=== PATIENT | male | born 1950 | race Caucasian/White ===

== ENCOUNTER 2017-05-01 23:25 | Inpatient (IN) | payer OTHER ==
[~2017-05-01] VITALS: Ht 175.3 cm; Wt 83.9 kg
[~2017-05-01 23:25] MED LIST: ASPIRIN81 M2 PO; CARVEDILOL6.25 MG PO; CENTRUM SILVER1 EAC1 PO; COMBIVENT RESPIM4 GM IH; CRANBERRY TABL1 EACH PO; CYANOCOBALAM1000 MCG PO; DICYCLOMINE HCL10 MG PO; EFFEXOR XR150 MG PO; FOLIC ACID0.4 MG PO; GABAPENTIN400 MG PO; KEFLEX500 MG PO; LACTULOSE10 GM/151 PO; LISINOPRIL2.5 MG PO; LORATADINE10 M2 PO; LYRICA50 MG PO; MILK THISTLE500 MG PO; MOTRIN800 MG PO; NORCO 5/3251 TABLET PO; NORVASC5 MG PO; NYSTATIN15 GM TP; PROBIOTIC1 EAC2 PO; REGLAN10 MG PO; RESTORIL30 MG PO; SEROQUEL100 MG PO; SEROQUEL12.5 MG PO; SYNTHROID150 MCG PO; TERBINAFINE15 GM TP; VENLAFAXINE HC150 MG PO; VITAMIN B-6100 MG PO; VITAMIN B12-FO1 EACH PO; VITAMIN D31000 UNI2 PO; VITAMIN D32000 UNIT PO; ZANTAC150 MG PO; ZOCOR20 MG PO
[2017-05-01 23:47] LABS: AMYLASE 121 IU/L (1-118); CHLORIDE 105 mEq/L (99-109); POTASSIUM 4.4 mEq/L (3.7-5.4); SODIUM 139 mEq/L (136-147)
[2017-05-01 23:49] LABS: GLUCOSE 81 mg/dL (70-99)
[2017-05-01 23:50] LABS: ANION GAP 14 MEQ/L (2-14)
[2017-05-01 23:52] LABS: SERUM ETHYL ALCOHOL < 10 mg/dL
[2017-05-01 23:53] LABS: GFR ESTIMATE (CALCULATED) > 59 mL/min/
[2017-05-01 23:54] LABS: UREA NITROGEN (BUN) 18 mg/dL (9-23)
[2017-05-01 23:56] LABS: LIPASE 76 U/L (1.0-51.0)
[2017-05-02 01:36] LABS: POINT-OF-CARE METER ID UU13113675
[2017-05-02 01:45] LABS: HEMATOCRIT 43.3 % (38.0-50.0); MCH 34.5 PG (29.0-34.0); MCHC 34.2 G/DL (30.0-36.0); MCV 100.9 FL (86-99); MEAN PLAT.VOLUME 10.9 uM^3 (9.0-12.4); MONOCYTE (%) 6.7 % (3-12); NEUTROPHIL (%) 80.2 % (45-76); PLATELET COUNT 138 K/uL (156-360); RBC DIS.WIDTH-CV 12.9 % (11.8-14.6); RBC DIS.WIDTH-SD 48.4 % (39-53); RED BLOOD COUNT 4.29 M/uL (4.00-5.50); WHITE BLOOD COUNT 9.6 K/uL (4.1-10.2)
[2017-05-02 01:46] LABS: BASOPHIL COUNT 0.1 K/uL (0-0.1); EOSINOPHIL (%) 0.7 % (0-5); EOSINOPHIL COUNT 0.1 K/uL (0-0.3); IMMATURE GRANULOCYTE (%) 0.4 % (0.0-0.7); INSTRUMENT ABS NEUTROPHIL CT 7.7 K/uL; LYMPHOCYTE COUNT 1.1 K/uL (1.0-2.8); MONOCYTE COUNT 0.6 K/uL (0-0.8); NEUTROPHIL COUNT 7.7 K/uL (1.8-6.4)
[2017-05-02 03:35] VITALS: BP 120/57
[2017-05-02 08:21] VITALS: BP 143/67
[2017-05-02] MEDS ORDERED: NYSTATIN15 GM TP (09:31)
[2017-05-02] MEDS ORDERED: KENALOG,ARISTOC80 GM TP (09:31)
[2017-05-02 12:03] LABS: HEMATOCRIT 39.6 % (38.0-50.0); MCV 101.8 FL (86-99)
[2017-05-02 12:11] VITALS: BP 163/74
[2017-05-02 15:52] VITALS: BP 174/81
[2017-05-02] MEDS ORDERED: OXYCODONE HCL5 MG PO (17:56)
[2017-05-02 20:12] VITALS: BP 155/73
[2017-05-03 00:13] VITALS: BP 147/71
[2017-05-03 04:19] VITALS: BP 135/66
[2017-05-03 06:30] LABS: HEMATOCRIT 36.9 % (38.0-50.0); MCH 35.4 PG (29.0-34.0); MCV 101.4 FL (86-99); MEAN PLAT.VOLUME 11.3 uM^3 (9.0-12.4); PLATELET COUNT 113 K/uL (156-360); RBC DIS.WIDTH-CV 13.1 % (11.8-14.6); RBC DIS.WIDTH-SD 49.3 % (39-53); RED BLOOD COUNT 3.64 M/uL (4.00-5.50); WHITE BLOOD COUNT 6.7 K/uL (4.1-10.2)
[2017-05-03 06:54] LABS: ALKALINE PHOSPHATASE 61 IU/L (3-129); ANION GAP 6 MEQ/L (2-14); CHLORIDE 101 MEQ/L (99-109); POTASSIUM 4.1 MEQ/L (3.7-5.4); SAMPLE HEMOLYSIS CHECK 0; SAMPLE ICTERIC CHECK 0; SAMPLE LIPEMIA CHECK 0; SODIUM 136 MEQ/L (136-147); TOTAL BILIRUBIN 1.3 MG/DL (0.0-1.0); UREA NITROGEN (BUN) 7 mg/dL (9-23)
[2017-05-03 06:56] LABS: GFR ESTIMATE (CALCULATED) > 59 mL/min/; GLUCOSE 108 mg/dL (70-99)
[2017-05-03 07:51] VITALS: BP 135/61
[2017-05-03 10:55] VITALS: BP 170/78
[2017-05-03 15:55] VITALS: BP 173/66
[2017-05-03 19:36] VITALS: BP 163/78
[2017-05-04 00:05] VITALS: BP 174/82
[2017-05-04 06:47] LABS: EOSINOPHIL (%) 1.7 % (0-5); EOSINOPHIL COUNT 0.1 K/uL (0-0.3); HEMATOCRIT 39.5 % (38.0-50.0); IMMATURE GRANULOCYTE (%) 0.3 % (0.0-0.7); INSTRUMENT ABS NEUTROPHIL CT 4.7 K/uL; MCH 35.3 PG (29.0-34.0); MCHC 34.9 G/DL (30.0-36.0); MEAN PLAT.VOLUME 11.3 uM^3 (9.0-12.4); MONOCYTE (%) 9.9 % (3-12); MONOCYTE COUNT 0.6 K/uL (0-0.8); NEUTROPHIL (%) 72.5 % (45-76); NEUTROPHIL COUNT 4.7 K/uL (1.8-6.4); PLATELET COUNT 105 K/uL (156-360); RBC DIS.WIDTH-CV 13.1 % (11.8-14.6); RBC DIS.WIDTH-SD 48.9 % (39-53); RED BLOOD COUNT 3.91 M/uL (4.00-5.50); WHITE BLOOD COUNT 6.5 K/uL (4.1-10.2)
[2017-05-04 07:09] LABS: ANION GAP 8 MEQ/L (2-14); CHLORIDE 100 MEQ/L (99-109); GFR ESTIMATE (CALCULATED) > 59 mL/min/; GLUCOSE 102 mg/dL (70-99); POTASSIUM 3.8 MEQ/L (3.7-5.4); SAMPLE HEMOLYSIS CHECK 0; SAMPLE ICTERIC CHECK 0; SAMPLE LIPEMIA CHECK 0; SODIUM 137 MEQ/L (136-147); UREA NITROGEN (BUN) 7 mg/dL (9-23)
[2017-05-04 08:25] VITALS: BP 177/94
[2017-05-04 15:25] VITALS: BP 185/84
[2017-05-04 17:15] VITALS: BP 170/80
== END 2017-05-04 19:43 | disposition home or self-care (01) | DRG 330 ==
LOC: TRA 23:25 → SDC 23:53 → 2SOUTH 05-02 01:10 → ENRESERV 05-02 01:17 → 3EAST 05-02 03:11
PROVIDERS: Emergency Medicine; Physician Assistant; Surgery
PROC: 0DQL0ZZ Repair Transverse Colon, Open Approach (ICD-10-PCS; principal; 2017-05-02)
PROC: 0W9G0ZZ Drainage of Peritoneal Cavity, Open Approach (ICD-10-PCS; principal; 2017-05-02)
PROC: 0HQ8XZZ Repair Buttock Skin, External Approach (ICD-10-PCS; principal; 2017-05-02)
DX: S31.619A Laceration without foreign body of abdominal wall, unspecified quadrant with penetration into peritoneal cavity, initial encounter (principal); S21.131A Puncture wound without foreign body of right front wall of thorax without penetration into thoracic cavity, initial encounter; S36.531A Laceration of transverse colon, initial encounter; S31.821A Laceration without foreign body of left buttock, initial encounter; S61.511A Laceration without foreign body of right wrist, initial encounter; J44.9 Chronic obstructive pulmonary disease, unspecified; G47.00 Insomnia, unspecified; F10.21 Alcohol dependence, in remission; X99.1XXA Assault by knife, initial encounter; Y92.512 Supermarket, store or market as the place of occurrence of the external cause; Z87.891 Personal history of nicotine dependence; Z91.5 Personal history of self-harm
CPT/HCPCS: 36415; 71010; 80048; 80053; 81003; 82103 90; 82150; 82948; 83690; 85014; 85018; 85025; 85027; 86850; 86900; 86901; 93005; 94010; 94640; 94640 76; 94760; 94799; 99202; 99281; 99285; G0480; J0330; J1170; J1650; J1956; J2175; J2405; J3010; J3480

== ENCOUNTER 2017-06-11 13:58 | Emergency (ER) | payer OTHER ==
[~2017-06-11] VITALS: Ht 175.3 cm; Wt 84.3 kg
[~2017-06-11 13:58] MED LIST changes: +KENALOG,ARISTOC80 GM TP; +OXYCODONE HCL5 MG PO
[2017-06-11 14:27] LABS: HEMATOCRIT 41.8 % (38.0-50.0); MCH 35.1 PG (29.0-34.0); MCHC 34.7 G/DL (30.0-36.0); MCV 101.2 FL (86-99); MEAN PLAT.VOLUME 10.5 uM^3 (9.0-12.4); PLATELET COUNT 127 K/uL (156-360); RBC DIS.WIDTH-CV 13.1 % (11.8-14.6); RED BLOOD COUNT 4.13 M/uL (4.00-5.50); WHITE BLOOD COUNT 4.2 K/uL (4.1-10.2)
[2017-06-11 14:37] LABS: CHLORIDE 105 mEq/L (99-109); POTASSIUM 4.5 mEq/L (3.7-5.4); SODIUM 138 mEq/L (136-147)
[2017-06-11 14:39] LABS: GLUCOSE 99 mg/dL (70-99)
[2017-06-11 14:40] LABS: ANION GAP 6 MEQ/L (2-14)
[2017-06-11 14:41] LABS: TOTAL BILIRUBIN 0.9 mg/dL (0.0-1.0)
[2017-06-11 14:43] LABS: ALKALINE PHOSPHATASE 105 IU/L (3-129); GFR ESTIMATE (CALCULATED) > 59 mL/min/
[2017-06-11 14:44] LABS: UREA NITROGEN (BUN) 11 mg/dL (9-23)
[2017-06-11 15:24] LABS: ADD MIUA? NO; BILIRUBIN NEGATIVE; BLOOD NEGATIVE; COLOR YELLOW ((YELLOW)); GLUCOSE (STRIP) NEGATIVE; KETONES NEGATIVE; LEUKOCYTES NEGATIVE; NITRITE NEGATIVE; PROTEIN (STRIP) NEGATIVE; SPECIFIC GRAVITY 1.008 (1.000-1.030); UCUL ADDED? NO; UROBILINOGEN 0.2 MG/DL (0.2-1.0)
[2017-06-11 15:27] LABS: TROP-I INTERPRETATION NEGATIVE; TROPONIN-I < 0.01 ng/mL (0.0-0.30)
[2017-06-11 15:43] VITALS: BP 152/88
== END 2017-06-11 15:46 | disposition home or self-care (01) ==
LOC: EME 13:58
PROVIDERS: Nurse Practitioner Family
DX: R42 Dizziness and giddiness (principal); Z48.89 Encounter for other specified surgical aftercare; Z98.890 Other specified postprocedural states; R53.1 Weakness; E11.9 Type 2 diabetes mellitus without complications; I10 Essential (primary) hypertension; Z87.891 Personal history of nicotine dependence
CPT/HCPCS: 80053; 81003; 84484; 85027; 93005; 99281; 99285